=== PATIENT | female | born 1950 | race Caucasian/White ===

== ENCOUNTER 2017-02-01 09:19 | Outpatient (CLI) | payer OTHER | END 2017-02-01 18:00 | disposition home or self-care (01) | LOC: SMA 09:19 | PROVIDERS: ATTEND Family Medicine | DX: Z12.31 Encounter for screening mammogram for malignant neoplasm of breast (principal) | CPT/HCPCS: G0202 ==

== ENCOUNTER 2018-02-20 09:07 | Outpatient (CLI) | payer OTHER | END 2018-02-20 19:55 | disposition home or self-care (01) | LOC: SMA 09:07 | PROVIDERS: ATTEND Physician Assistant Medical | DX: Z12.31 Encounter for screening mammogram for malignant neoplasm of breast (principal) | CPT/HCPCS: 77067 ==

== ENCOUNTER 2019-03-11 08:20 | Outpatient (CLI) | payer OTHER | END 2019-03-11 21:08 | disposition home or self-care (01) | LOC: SMA 08:20 | PROVIDERS: ATTEND Physician Assistant Medical | DX: Z12.31 Encounter for screening mammogram for malignant neoplasm of breast (principal) | CPT/HCPCS: 77067 ==

== ENCOUNTER 2020-03-15 08:54 | Outpatient (CLI) | payer OTHER | END 2020-03-15 21:07 | disposition home or self-care (01) | LOC: SMA 08:54 | PROVIDERS: ATTEND Family Medicine | DX: Z12.31 Encounter for screening mammogram for malignant neoplasm of breast (principal) | CPT/HCPCS: 77067 ==

== ENCOUNTER 2021-03-16 08:56 | Outpatient (CLI) | payer OTHER | END 2021-03-16 19:54 | disposition home or self-care (01) | LOC: SMA 08:56 | PROVIDERS: ATTEND Family Medicine | DX: Z12.31 Encounter for screening mammogram for malignant neoplasm of breast (principal) | CPT/HCPCS: 77067 ==

== ENCOUNTER 2022-03-23 08:33 | Outpatient (CLI) | payer OTHER | END 2022-03-23 19:30 | disposition home or self-care (01) | LOC: SMA 08:33 | PROVIDERS: ATTEND Family Medicine | DX: Z12.31 Encounter for screening mammogram for malignant neoplasm of breast (principal) | CPT/HCPCS: 77067 ==